=== PATIENT | female | born 1965 | race Hispanic/Latino ===

== ENCOUNTER 2021-12-29 21:08 | Inpatient (IN) | payer OTHER ==
[~2021-12-29] VITALS: Ht 162.6 cm; Wt 72.1 kg
[2021-12-29 11:03] VITALS: BP 136/78
[~2021-12-29 21:08] MED LIST: PROG100C11 PO
[2021-12-29 23:03] VITALS: BP 136/78
[2021-12-30] MEDS ORDERED: ACETAMINOPHEN 325 MG TAB PO PRN
[2021-12-30] MEDS ORDERED: NITROGLYCERIN 0.4 MG SL TAB SL PRN
[2021-12-30] MEDS: ZOSYN 3.375GM+NS 50ML 50 ML IV SCH ×4 (00:17→20:06)
[2021-12-30] MEDS: 0.9%NACL 1000ML 1,000 ML IV SCH ×3 (00:17→20:07)
[2021-12-30 00:28] LABS: INR 1.02 (0.85-1.15); PROTHROMBIN TIME 11.1 SEC (9.6-11.6)
[2021-12-30] MEDS: ACETAMINOPHEN 325 MG TAB PO PRN (00:28)
[2021-12-30 00:29] LABS: PARTIAL THROMBOPLASTIN TIME 30.2 SEC (26.3-35.5)
[2021-12-30 03:10] VITALS: BP 105/62
[2021-12-30 05:24] LABS: BASOPHILS % (AUTO) 0.3 % (0.0-5.0); EOSINOPHILS % (AUTO) 1.5 % (0.0-8.0); HEMATOCRIT 35.6 % (42-54); LYMPHOCYTES % (AUTO) 22.4 % (21.0-51.0); MEAN CORPUSCULAR HEMOGLOBIN 31.3 pg (27.0-33.0); MEAN CORPUSCULAR HGB CONC 33.7 g/dL (32.0-36.0); MONOCYTES % (AUTO) 10.4 % (3.0-13.0); NEUTROPHILS % (AUTO) 65.1 % (40.0-77.0); PLATELET COUNT (AUTO) 164 K/uL (130-400); RED BLOOD CELL COUNT(AUTO) 3.83 MIL/uL (4.50-6.20); RED CELL DISTRIBUTION WIDTH 12.9 % (11.0-15.5); WHITE BLOOD COUNT (AUTO) 9.8 K/uL (4.8-10.8)
[2021-12-30 05:43] LABS: ALBUMIN 2.7 g/dL (3.5-5.0); CREATININE 0.9 mg/dL (0.5-1.5); MAGNESIUM 1.9 mg/dL (1.80-2.40); POTASSIUM 3.4 mmol/L (3.5-5.1); TOTAL PROTEIN, SERUM 6.2 g/dL (6.0-8.3)
[2021-12-30] MEDS ORDERED: KCL 20 MEQ ERTAB PO SCH (06:00)
[2021-12-30 07:47] LABS: APPEARANCE,URINE CLEAR (CLEAR); BILIRUBIN,URINE NEGATIVE (NEGATIVE); COLOR,URINE DARK YELLOW (YELLOW); GLUCOSE, URINE (UA) NEGATIVE (NEGATIVE); KETONES,URINE 15 mg/dL (NEGATIVE); LEUKOCYTE ESTERASE ,URINE NEGATIVE Leu/uL (NEGATIVE); OCCULT BLOOD,URINE NEGATIVE (NEGATIVE); PROTEIN,URINE NEGATIVE (NEGATIVE)
[2021-12-30 07:50] LABS: NITRATE,URINE NEGATIVE (NEGATIVE)
[2021-12-30 08:00] VITALS: BP 111/62
[2021-12-30] MEDS: HYDROMORPHONE 0.5 MG SYG (0.5MG/0.5ML) IVP PRN ×4 (08:46→23:58)
[2021-12-30] MEDS: ENOXAPARIN SODIUM 40 MG/0.4 ML SYRINGE SQ SCH (09:00)
[2021-12-30] MEDS ORDERED: HYDROMORPHONE 1 MG INJ IVP PRN (09:00)
[2021-12-30] MEDS: FAMOTIDINE 20MG TAB PO SCH ×2 (09:30→20:07)
[2021-12-30 11:38] VITALS: BP 136/71
[2021-12-30 16:00] VITALS: BP 142/70
[2021-12-30 20:00] VITALS: BP 113/56
[2021-12-31] VITALS: BP 114/53
[2021-12-31 04:00] VITALS: BP 114/57
[2021-12-31] MEDS: ZOSYN 3.375GM+NS 50ML 50 ML IV SCH ×3 (05:02→20:10)
[2021-12-31] MEDS: HYDROMORPHONE 0.5 MG SYG (0.5MG/0.5ML) IVP PRN ×5 (05:02→21:06)
[2021-12-31] MEDS: 0.9%NACL 1000ML 1,000 ML IV SCH ×3 (05:16→20:14)
[2021-12-31 07:08] LABS: HEMATOCRIT 34.5 % (42-54); MEAN CORPUSCULAR HEMOGLOBIN 31.9 pg (27.0-33.0); MEAN CORPUSCULAR HGB CONC 34.5 g/dL (32.0-36.0); MEAN CORPUSCULAR VOLUME 92.5 fL (79-99); RED BLOOD CELL COUNT(AUTO) 3.73 MIL/uL (4.50-6.20); WHITE BLOOD COUNT (AUTO) 14.2 K/uL (4.8-10.8)
[2021-12-31 07:40] LABS: ALBUMIN 2.5 g/dL (3.5-5.0); CREATININE 0.8 mg/dL (0.5-1.5); POTASSIUM 3.4 mmol/L (3.5-5.1); TOTAL PROTEIN, SERUM 6.3 g/dL (6.0-8.3)
[2021-12-31 08:00] VITALS: BP 102/44
[2021-12-31] MEDS: FAMOTIDINE 20MG TAB PO SCH ×2 (09:09→20:10)
[2021-12-31] MEDS: ENOXAPARIN SODIUM 40 MG/0.4 ML SYRINGE SQ SCH (09:09)
[2021-12-31] MEDS ORDERED: POTASSIUM CHLORIDE 10MEQ/100ML 100 ML IV PRN (10:00)
[2021-12-31] MEDS ORDERED: LIDOCAINE HCL-MPF 1% 2ML VIAL IJ PRN (10:00)
[2021-12-31] MEDS ORDERED: POTASSIUM CHLORIDE 10% ELIXIR 20 MEQ/15 ML UDCUP PO PRN (10:00)
[2021-12-31] MEDS ORDERED: IOHEXOL 350 MG/ML 100ML INFUS..BTL IV ONE (10:23)
[2021-12-31] MEDS: ONDANSETRON 4MG INJ IV PRN ×3 (11:16→23:10)
[2021-12-31 12:00] VITALS: BP 98/38
[2021-12-31 16:00] VITALS: BP 110/57
[2021-12-31 20:00] VITALS: BP 109/54
[2022-01-01] VITALS: BP 98/49
[2022-01-01] MEDS: HYDROMORPHONE 0.5 MG SYG (0.5MG/0.5ML) IVP PRN ×7 (01:13→17:26)
[2022-01-01 04:00] VITALS: BP 102/68
[2022-01-01] MEDS: ZOSYN 3.375GM+NS 50ML 50 ML IV SCH ×3 (04:43→20:34)
[2022-01-01] MEDS: 0.9%NACL 1000ML 1,000 ML IV SCH ×3 (04:43→22:38)
[2022-01-01] MEDS: ONDANSETRON 4MG INJ IV PRN ×3 (05:22→17:21)
[2022-01-01 05:57] LABS: BASOPHILS % (AUTO) 0.3 % (0.0-5.0); EOSINOPHILS % (AUTO) 0.9 % (0.0-8.0); HEMATOCRIT 31.7 % (36-48); LYMPHOCYTES % (AUTO) 13.8 % (21.0-51.0); MEAN CORPUSCULAR HEMOGLOBIN 31.7 pg (27.0-33.0); MEAN CORPUSCULAR HGB CONC 34.1 g/dL (32.0-36.0); MONOCYTES % (AUTO) 7.4 % (3.0-13.0); NEUTROPHILS % (AUTO) 77.1 % (40.0-77.0); PLATELET COUNT (AUTO) 165 K/uL (130-400); RED BLOOD CELL COUNT(AUTO) 3.41 MIL/uL (4.00-5.50); RED CELL DISTRIBUTION WIDTH 12.8 % (11.0-15.5); WHITE BLOOD COUNT (AUTO) 11.9 K/uL (4.8-10.8)
[2022-01-01 06:12] LABS: CREATININE 0.8 mg/dL (0.5-1.5); POTASSIUM 3.5 mmol/L (3.5-5.1)
[2022-01-01] MEDS: FAMOTIDINE 20MG TAB PO SCH ×2 (09:14→20:34)
[2022-01-01] MEDS: KCL 20 MEQ ERTAB PO PRN ×2 (09:15→12:12)
[2022-01-01] MEDS: ENOXAPARIN SODIUM 40 MG/0.4 ML SYRINGE SQ SCH (09:16)
[2022-01-01 12:00] VITALS: BP 101/57
[2022-01-01 16:00] VITALS: BP 114/57
[2022-01-01 20:00] VITALS: BP 116/50
[2022-01-01] MEDS: ACETAMINOPHEN 325 MG TAB PO PRN (21:29)
[2022-01-01 23:49] VITALS: BP 115/44
[2022-01-02] MEDS: 0.9%NACL 1000ML 1,000 ML IV SCH ×3 (00:27→21:18)
[2022-01-02 04:00] VITALS: BP 125/55
[2022-01-02] MEDS: HYDROMORPHONE 0.5 MG SYG (0.5MG/0.5ML) IVP PRN ×2 (04:31→08:32)
[2022-01-02] MEDS: ZOSYN 3.375GM+NS 50ML 50 ML IV SCH ×3 (04:33→21:01)
[2022-01-02 05:52] LABS: CREATININE 0.8 mg/dL (0.5-1.5)
[2022-01-02] MEDS: KCL 20 MEQ ERTAB PO PRN (06:06)
[2022-01-02 07:34] VITALS: BP 136/64
[2022-01-02] MEDS ORDERED: POTASSIUM CHLORIDE 10% ELIXIR 20 MEQ/15 ML UDCUP PO SCH (08:00)
[2022-01-02] MEDS: FAMOTIDINE 20MG TAB PO SCH ×2 (08:02→21:01)
[2022-01-02] MEDS: ENOXAPARIN SODIUM 40 MG/0.4 ML SYRINGE SQ SCH (08:03)
[2022-01-02] MEDS: ONDANSETRON 4MG INJ IV PRN (08:33)
[2022-01-02 13:01] VITALS: BP 117/60
[2022-01-02 17:07] LABS: HEMATOCRIT 35.1 % (36-48); MEAN CORPUSCULAR HEMOGLOBIN 31.2 pg (27.0-33.0); MEAN CORPUSCULAR HGB CONC 33.3 g/dL (32.0-36.0); MEAN CORPUSCULAR VOLUME 93.6 fL (79-99); RED BLOOD CELL COUNT(AUTO) 3.75 MIL/uL (4.00-5.50); WHITE BLOOD COUNT (AUTO) 10.6 K/uL (4.8-10.8)
[2022-01-02 17:17] VITALS: BP 117/55
[2022-01-02 19:41] VITALS: BP 130/56
[2022-01-02 23:17] VITALS: BP 114/66
[2022-01-03 03:01] VITALS: BP 123/64
[2022-01-03] MEDS: ZOSYN 3.375GM+NS 50ML 50 ML IV SCH ×2 (04:48→12:28)
[2022-01-03 05:57] LABS: BASOPHILS % (AUTO) 0.5 % (0.0-5.0); HEMATOCRIT 32.6 % (36-48); LYMPHOCYTES % (AUTO) 27.1 % (21.0-51.0); MEAN CORPUSCULAR HEMOGLOBIN 31.3 pg (27.0-33.0); MEAN CORPUSCULAR HGB CONC 34.7 g/dL (32.0-36.0); MEAN CORPUSCULAR VOLUME 90.3 fL (79-99); MONOCYTES % (AUTO) 9.5 % (3.0-13.0); NEUTROPHILS % (AUTO) 57.6 % (40.0-77.0); PLATELET COUNT (AUTO) 198 K/uL (130-400); RED BLOOD CELL COUNT(AUTO) 3.61 MIL/uL (4.00-5.50); RED CELL DISTRIBUTION WIDTH 12.4 % (11.0-15.5); WHITE BLOOD COUNT (AUTO) 7.6 K/uL (4.8-10.8)
[2022-01-03 06:02] LABS: CREATININE 0.7 mg/dL (0.5-1.5); POTASSIUM 3.1 mmol/L (3.5-5.1)
[2022-01-03] MEDS: 0.9%NACL 1000ML 1,000 ML IV SCH (06:42)
[2022-01-03] MEDS ORDERED: POTASSIUM CHLORIDE 10% ELIXIR 20 MEQ/15 ML UDCUP PO SCH (07:00)
[2022-01-03] MEDS ORDERED: KETOROLAC 15MG/ML VIAL (15MG/ML) IV PRN (07:00)
[2022-01-03] MEDS: FAMOTIDINE 20MG TAB PO SCH (07:50)
[2022-01-03] MEDS: ENOXAPARIN SODIUM 40 MG/0.4 ML SYRINGE SQ SCH (07:51)
[2022-01-03 08:00] VITALS: BP 110/47
[2022-01-03 12:00] VITALS: BP 125/53
[2022-01-03 16:00] VITALS: BP 127/81
[2022-01-03] MEDS ORDERED: AMOX1TAB16 PO (16:29)
== END 2022-01-03 19:39 | disposition home or self-care (01) | DRG 872 ==
LOC: 3BH 23:01 → EDSEX 23:01
PROVIDERS: ADMIT Hospitalist; ATTEND Hospitalist
DX: A41.9 Sepsis, unspecified organism (principal); K57.32 Diverticulitis of large intestine without perforation or abscess without bleeding; E87.1 Hypo-osmolality and hyponatremia; E87.6 Hypokalemia; E66.9 Obesity, unspecified; Z68.27 Body mass index [BMI] 27.0-27.9, adult
CPT/HCPCS: 36415; 74178; 80048; 80053; 81003; 83605; 83735; 84145; 85025; 85027; 85610; 85651; 85730; 86140; 87040; 93005; G0378; J1170; J1650; J1885; J2405; J2543; J7030; Q9967

== ENCOUNTER 2023-08-18 18:42 | Emergency (ER) | payer OTHER ==
[~2023-08-18] VITALS: Ht 162.6 cm; Wt 93.0 kg
[~2023-08-18 18:42] MED LIST changes: +AMOX1TAB16 PO; -PROG100C11 PO
[2023-08-18 20:29] LABS: APPEARANCE,URINE CLEAR (CLEAR); BILIRUBIN,URINE NEGATIVE (NEGATIVE); COLOR,URINE YELLOW (YELLOW); GLUCOSE, URINE (UA) NEGATIVE (NEGATIVE); KETONES,URINE 10 mg/dL (NEGATIVE); LEUKOCYTE ESTERASE ,URINE 75 Leu/uL (NEGATIVE); NITRATE,URINE NEGATIVE (NEGATIVE); OCCULT BLOOD,URINE NEGATIVE (NEGATIVE); PROTEIN,URINE 10 mg/dL (NEGATIVE); UROBILINOGEN,URINE 0.2 mg/dL (0.2-1.0)
[2023-08-18 20:33] LABS: ADD UA MICROSCOPIC YES
[2023-08-18 20:35] LABS: BACTERIA,URINE RARE /HPF (None Seen); MUCUS,URINE RARE LPF (None Seen); SQUAMOUS EPITHELIAL CELL,UR RARE /HPF (0-2)
[2023-08-18 20:43] LABS: BASOPHILS # (AUTO) 0.05 K/uL (0.00-0.20); BASOPHILS % (AUTO) 0.5 % (0.0-5.0); EOSINOPHILS # (AUTO) 0.23 K/uL (0.00-0.70); EOSINOPHILS % (AUTO) 2.4 % (0.0-8.0); HEMATOCRIT 42.4 % (36-48); IMMATURE GRANULOCYTE ABSOLUTE 0.02 K/uL (0-1); LYMPHOCYTES # (AUTO) 2.1 K/uL (1.0-4.8); LYMPHOCYTES % (AUTO) 22.2 % (21.0-51.0); MEAN CORPUSCULAR HEMOGLOBIN 31.7 pg (27.0-33.0); MEAN CORPUSCULAR HGB CONC 34.7 g/dL (32.0-36.0); MEAN CORPUSCULAR VOLUME 91.4 fL (79-99); MONOCYTES # (AUTO) 0.8 K/uL (0.1-1.0); MONOCYTES % (AUTO) 8.1 % (3.0-13.0); NEUTROPHILS # (AUTO) 6.4 K/uL (1.8-7.7); NEUTROPHILS % (AUTO) 66.6 % (40.0-77.0); PLATELET COUNT (AUTO) 210 K/uL (130-400); RED BLOOD CELL COUNT(AUTO) 4.64 MIL/uL (4.00-5.50); RED CELL DISTRIBUTION WIDTH 12.7 % (11.0-15.5); WHITE BLOOD COUNT (AUTO) 9.7 K/uL (4.8-10.8)
[2023-08-18 20:51] LABS: CREATININE 0.9 mg/dL (0.5-1.0); POTASSIUM 3.8 mmol/L (3.5-5.1)
[2023-08-18 20:55] LABS: ALBUMIN 3.7 g/dL (3.5-5.0); BILIRUBIN,TOTAL 0.7 mg/dL (0.2-1.0); TOTAL PROTEIN, SERUM 8.4 g/dL (6.0-8.3)
[2023-08-18] MEDS: PANTOPRAZOLE 40 MG/VIAL IVP ONE (21:22)
[2023-08-18] MEDS: ONDANSETRON 4MG INJ IVP ONE (21:22)
[2023-08-18] MEDS: ACETAMINOPHEN 325 MG TAB PO ONE (21:22)
[2023-08-18] MEDS ORDERED: CEPH500B PO (21:34)
[2023-08-18] MEDS ORDERED: PHEN-846 PO (21:34)
[2023-08-18 21:50] VITALS: BP 112/68; PULSE 82; RESP 16; O2SAT 99
== END 2023-08-18 22:12 | disposition home or self-care (01) ==
LOC: EDH 18:42
DX: N39.0 Urinary tract infection, site not specified (principal)
CPT/HCPCS: 99284; 96374; 96375; 80053; 85025; 87088; 81001; 36415; 93005; J2405; C9113

== ENCOUNTER 2023-12-17 12:12 | Emergency (ER) | payer SELFPAY ==
[~2023-12-17] VITALS: Ht 162.6 cm; Wt 89.8 kg
[~2023-12-17 12:12] MED LIST changes: +CEPH500B PO; +PHEN-846 PO
[2023-12-17 12:16] VITALS: BP 150/90; PULSE 84; RESP 16; TEMP 98.9
[2023-12-17] MEDS: acetaMINOPHEN WITH coDEINE 1 TAB TAB PO ONE (13:28)
[2023-12-17] MEDS: dexaMETHasone SOD PHOSPHATE 4 MG/ML 1ML VIAL IM ONE (13:29)
[2023-12-17] MEDS ORDERED: METH4TAB3 PO (13:31)
[2023-12-17] MEDS ORDERED: IBUP-2077 PO (13:31)
== END 2023-12-17 13:46 | disposition home or self-care (01) ==
LOC: EDH 12:12
DX: G89.29 Other chronic pain (principal); M25.562 Pain in left knee; Z79.899 Other long term (current) drug therapy; Z79.2 Long term (current) use of antibiotics; Z90.49 Acquired absence of other specified parts of digestive tract
CPT/HCPCS: 99283; 73562; 96372; J1100